=== PATIENT | male | born 1980 | race Caucasian/White ===

== ENCOUNTER 2017-08-04 05:18 | Emergency (ER) | payer MEDICARE, OTHER ==
[~2017-08-04] VITALS: Ht 165.1 cm; Wt 68.0 kg
[~2017-08-04 05:18] MED LIST: CLIN300C5 PO; PERC5TAB12 PO
[2017-08-04 05:30] VITALS: BP 152/85; PULSE 99; RESP 18; TEMP 98; O2SAT 99
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
== END 2017-08-04 06:28 | disposition home or self-care (01) ==
LOC: NEPD 05:18
DX: Z76.89 Persons encountering health services in other specified circumstances (principal); D18.09 Hemangioma of other sites; Y09 Assault by unspecified means; B19.20 Unspecified viral hepatitis C without hepatic coma; Z72.0 Tobacco use; Z79.2 Long term (current) use of antibiotics; Z79.899 Other long term (current) drug therapy
CPT/HCPCS: 70486; 99283

== ENCOUNTER 2017-10-12 00:15 | Emergency (ER) | payer MEDICARE, OTHER ==
[2017-10-12 00:25] VITALS: BP 126/84; PULSE 102; RESP 16; TEMP 98; O2SAT 98
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
[2017-10-12] MEDS: IBUPROFEN 600 MG TAB PO ONE ×2 (01:00→01:28)
[2017-10-12 01:17] LABS: BILIRUBIN, URINE NEG (NEG); BLOOD, URINE SMALL (NEG); GLUCOSE,URINE NEG (NEG); KETONE, URINE NEG (NEG); MUCUS URINE FEW /lpf (OCC); NITRITE,URINE NEG (NEG); URINE COLOR Straw (YELLW/STRAW); URINE LEUKOCYTE ESTERASE NEG (NEG)
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
== END 2017-10-12 03:28 ==
LOC: NEPD 00:15
DX: Z02.89 Encounter for other administrative examinations (principal); M54.5 Low back pain; R45.1 Restlessness and agitation; D18.01 Hemangioma of skin and subcutaneous tissue; Z72.0 Tobacco use
CPT/HCPCS: 72100; 81001; 99284